=== PATIENT | female | born 1995 | race Caucasian/White ===

== ENCOUNTER 2018-07-14 19:56 | Emergency (ER) | payer OTHER ==
[~2018-07-14] VITALS: Ht 165.1 cm; Wt 104.8 kg
[2018-07-14 20:02] VITALS: Ht 165.1 cm; Wt 104.8 kg
[2018-07-14 21:26] VITALS: BP 117/81
== END 2018-07-14 21:26 | disposition home or self-care (01) ==
LOC: ED 19:56
DX: O99.612 Diseases of the digestive system complicating pregnancy, second trimester (principal); K21.9 Gastro-esophageal reflux disease without esophagitis; T62.91XA Toxic effect of unspecified noxious substance eaten as food, accidental (unintentional), initial encounter; Z3A.25 25 weeks gestation of pregnancy; Y92.89 Other specified places as the place of occurrence of the external cause
CPT/HCPCS: Q0162